=== PATIENT | female | born 1965 | race Caucasian/White ===

== ENCOUNTER 2018-12-18 11:48 | Emergency (ER) | payer BC ==
[~2018-12-18] VITALS: Ht 175.3 cm; Wt 79.4 kg
--- NOTE | 2018-12-18 12:11 | NUR ---
Patient discharged to home in stable conditon. Written and verbal after care instructions given. Patient verbalizes understanding of instructions.pt walks in steady gait.
== END 2018-12-18 12:15 | disposition home or self-care (01) ==
LOC: ER 11:48
DX: M54.42 Lumbago with sciatica, left side (principal)
CPT/HCPCS: A4663

== ENCOUNTER 2020-11-30 12:46 | Emergency (ER) | payer BC ==
[~2020-11-30] VITALS: Ht 175.3 cm; Wt 72.6 kg
[2020-11-30] MEDS ORDERED: LIDO30AD10 TD (13:29)
--- NOTE | 2020-11-30 13:36 | NUR ---
Gave pt RX and d/c instructions, pt verbalized understanding.
== END 2020-11-30 13:39 | disposition home or self-care (01) ==
LOC: ER 12:46
DX: M54.31 Sciatica, right side (principal); G89.4 Chronic pain syndrome
CPT/HCPCS: A4663